=== PATIENT | male | born 1940 | race Caucasian/White ===

== ENCOUNTER → 2017-08-24 | Outpatient (CLI) | payer MEDICARE ==
[~2017-08-24] MED LIST: ACTOS 30 MG TAB30 M1 PO; ADULT LOW DOSE81 MG PO; ALLOPURINOL 30300 M1 PO; ATENOLOL 50 MG50 M1 PO; AVANDARYL 4 MG PO; AVANDARYL 4 MG1 EACH PO; BENTYL 20 MG TA20 M1 PO; CARISOPRODOL 3350 MG PO; CELEBREX 200 M200 M1 PO; CLONIDINE PO; CLONIDINE0.1 PO; COREG6.25 MG PO; GLYBURIDE 2.52.5 MG PO; HYDROCHLOROTHIA25 M1 PO; LEVEMIR SUBQ; LISINOPRIL5 MG PO; LORTAB 5 MG/5001 TA1 PO; NAPROXEN375 M1 PO; NEXIUM40 MG PO; NORCO 5-325 TA1 EACH PO; NORVASC5 MG PO; POTASSIUM CIT PO; SIMVASTATIN40 MG PO; TRAMADOL 50 MG50 MG PO; VOLTAREN GEL 1100 GM TOP
--- NOTE | 2017-08-29 06:53 | PAINCON ---
[address] [address] PAIN MANAGEMENT CONSULTATION Name: GINNAADELSO Room: [facility]#: [id number] Admission: 08/24/17 Attend Phys: Blair Silveira Discharge: Date of : 39 Report #: [id number] THIS REPORT FOR: //name// CC: FAM unknown Sriram Mast DATE OF SERVICE: 08/24/2017 PAIN CLINIC NOTE HISTORY OF PRESENT ILLNESS: The patient is a very pleasant 77-year-old gentleman, long known to the pain clinic, being treated for cervical radiculopathy and actually component of lumbar radiculopathy over time. Last seen in the pain clinic back in February of last year, had a cervical epidural injection with incremental improvement of baseline pain. In fact notes pain was actually nearly gone for a period of time, but it has gradually begun to recur. In 2017 he had a total of 3 cervical epidural injections and 2 lumbar epidural injections. Prior injection had been 01/2017 (cervical epidural injection), before that he had 3 injections April through July. He returns to the pain clinic today noting symptoms have begun to recur with pain in the right neck, shoulder and arm with paresthesia in the lateral 3 fingers (long, ring and fifth finger). He has decreased subjective grasp in this hand. PHYSICAL EXAMINATION: Otherwise shows a pleasant 77-year-old gentleman. BMI is 36.3 kilograms per meter squared, blood pressure 125/79, pulse 66, respirations 16. Cervical range of motion is limited. Positive Lhermitte's, rating the right hand. Objective decreased right triceps strength and right grasp strength. Deep tendon reflexes are diminished on the right compared to the left, primarily for the triceps and brachioradialis. ASSESSMENT: Symptomatic cervical radiculopathy by clinical exam and history. RECOMMENDATION: 1. I will renew hydrocodone 7.5/325 one tablet up to 3 times a day, dispensed 90 tablets with no refill. The patient has typically uses analgesic on a nondaily basis. Last prescription was about 6 months ago. 2. Cervical epidural injection under fluoroscopy today. 3. Follow up simply as needed. PROCEDURE: Cervical epidural injection under fluoroscopy. PROCEDURE NOTE: After written and informed consent was obtained including risk of dural puncture, spinal cord trauma, paralysis and increased pain, the patient was taken to the fluoroscopy suite and placed in the prone [place], [place] [address] PAIN MANAGEMENT CONSULTATION Name: ADELSO CHACKO Room: [facility]#: [id number] Admission: 08/24/17 Attend Phys: Blair Silveira Discharge: Date of : 39 Report #: [id number] appropriate abdominal bolstering, neck was flexed, palms under the thighs. Skin was prepped with ChloraPrep. Sterile draping was applied. Skin wheal with 1% Xylocaine was raised. A 22-gauge 3-1/2 inch epidural Tuohy needle was placed via a midline approach at the C7-T1 interspace, advanced under biplanar fluoroscopy using continuous loss of resistance. With appropriate loss of resistance at the expected depth on lateral view, the glass loss of resistance syringe was disconnected. A low volume extension tubing was connected to the needle and a 5 mL syringe. Negative aspiration for cerebrospinal fluid or blood was noted. A 1 mL of Omnipaque was injected which showed spread within the epidural space on biplanar fluoroscopy. This was followed with 80 mg of triamcinolone plus 1 mL of 1.5% preservative Xylocaine. Needle was withdrawn to the interspinous ligament, 0.5 mL of Xylocaine was used to flush the needle. The needle was then completely withdrawn. The area was cleansed. Band-Aid was applied. The patient was allowed to move off the procedure table and ambulated to the recovery room, monitored for an appropriate period of time, discharged in good and stable condition. <ELECTRONICALLY SIGNED> By: Sriram Mast DO 08/29/17 0653 [id number] Mast DO /carley
== END | disposition home or self-care (01) ==
LOC: M.PC 01:41
DX: M54.12 Radiculopathy, cervical region (principal); G89.29 Other chronic pain; I10 Essential (primary) hypertension; E11.9 Type 2 diabetes mellitus without complications; E78.5 Hyperlipidemia, unspecified; Z98.890 Other specified postprocedural states; Z88.8 Allergy status to other drugs, medicaments and biological substances; Z79.899 Other long term (current) drug therapy; Z79.891 Long term (current) use of opiate analgesic; Z79.4 Long term (current) use of insulin; Z98.0 Intestinal bypass and anastomosis status; Z90.5 Acquired absence of kidney

== ENCOUNTER → 2017-09-07 | Outpatient (CLI) | payer MEDICARE ==
--- NOTE | 2017-09-08 07:50 | PAINCON ---
[facility] [address] [place] [address] PAIN MANAGEMENT CONSULTATION Name: ADELSO CHACKO Room: [facility]#: [id number] Admission: 09/07/17 Attend Phys: Blair Silveira Discharge: Date of : 39 Report #: [id number] THIS REPORT FOR: //name// CC: Rob Mast DATE OF SERVICE: 09/07/2017 PROCEDURE: Cervical epidural injection under fluoroscopy. INDICATION: Symptomatic cervical radiculopathy by clinical exam and history. One cervical epidural injection on 08/24/2017 afforded good relief of right neck, shoulder and arm pain. Still has paresthesia going into the right fourth and fifth fingers. Objective loss of strength, right triceps compared to the left. He incidentally notes pain in the right ankle. He denies antecedent trauma, has pain in the lateral aspect of the right ankle from behind the malleolus anterior to the lateral aspect of the foot and somewhat up the distal aspect of the lower extremity on that right side. Lower extremity strength is otherwise preserved. Straight leg raise is negative. Patellar and Achilles reflexes are preserved, though he does have pain with movement and palpation of the right lower extremity. ASSESSMENT: Symptomatic right ankle pain. We will get x-rays of that ankle to look for any occult fracture. We will try a trial of Voltaren gel topically. Follow up next week to evaluate x-rays. PROCEDURE: Cervical epidural injection under fluoroscopy. PROCEDURE NOTE: After written and informed consent was obtained including risk of dural puncture, spinal cord trauma, paralysis and increased pain, the patient was taken to the fluoroscopy suite and placed in the prone position, with appropriate abdominal bolstering, neck was flexed, palms under the thighs. Skin was prepped with ChloraPrep. Sterile draping was applied. Skin wheal with 1% Xylocaine was raised. A 22-gauge 3-1/2 inch epidural Tuohy needle was placed via a midline approach at the C7-T1 interspace, advanced under biplanar fluoroscopy using continuous loss of resistance. With appropriate loss of resistance at the expected depth on lateral view, the glass loss of resistance syringe was disconnected. A low volume extension tubing was connected to the needle and a 5 mL syringe. Negative aspiration for cerebrospinal fluid or blood was noted. A 1 mL of Omnipaque was injected which showed spread within the epidural space on biplanar fluoroscopy. This was followed with 80 mg of triamcinolone plus 1 mL of 1.5% preservative Xylocaine. Needle was withdrawn to the interspinous ligament, 0.5 mL of Xylocaine was used to flush the needle. The needle was then completely withdrawn. The area was cleansed[place] [address] PAIN MANAGEMENT CONSULTATION Name: ADELSO CHACKO Room: [facility]#: [id number] Admission: 09/07/17 Attend Phys: Blair Silveira Discharge: Date of : 39 Report #: [id number] applied. The patient was allowed to move off the procedure table and ambulated to the recovery room, monitored for an appropriate period of time, discharged in good and stable condition. <ELECTRONICALLY SIGNED> By: Sriram Mast DO 09/08/17 0750 [id number] [id number] Camp[facility]a Mast DO /nt
== END ==
LOC: M.RAD 14:31
DX: M19.071 Primary osteoarthritis, right ankle and foot (principal); M25.474 Effusion, right foot; M25.471 Effusion, right ankle; M54.12 Radiculopathy, cervical region

== ENCOUNTER → 2017-09-07 | Outpatient (CLI) | payer MEDICARE | END | disposition home or self-care (01) | LOC: M.PC 04:00 | DX: M54.12 Radiculopathy, cervical region (principal); G89.29 Other chronic pain; S99.921A Unspecified injury of right foot, initial encounter; E11.9 Type 2 diabetes mellitus without complications; I10 Essential (primary) hypertension; E78.5 Hyperlipidemia, unspecified; Z98.890 Other specified postprocedural states; Z79.891 Long term (current) use of opiate analgesic; Z88.8 Allergy status to other drugs, medicaments and biological substances; Z79.899 Other long term (current) drug therapy; Z87.442 Personal history of urinary calculi; Z90.5 Acquired absence of kidney; X58.XXXA Exposure to other specified factors, initial encounter; Y93.89 Activity, other specified; Y92.89 Other specified places as the place of occurrence of the external cause; Y99.8 Other external cause status ==

== ENCOUNTER → 2017-09-14 | Outpatient (CLI) | payer MEDICARE ==
--- NOTE | 2017-09-15 07:13 | PAINCON ---
[address] [address] PAIN MANAGEMENT CONSULTATION Name: ADELSO CHACKO [id number] Admission: 09/14/17 Attend Phys: Blair Silveira Discharge: Date of : 39 Report #: [id number] THIS REPORT FOR: //name// CC: Shoaib Mast DATE OF SERVICE: 09/14/2017 HISTORY OF PRESENT ILLNESS: The patient is a pleasant 77-year-old gentleman, prior treated for symptomatic cervical radiculopathy, had a second cervical epidural injection on 09/07/2017. Fortunately, this did afford good relief. He was complaining of pain in the right ankle at that time. He had fallen several weeks prior. Had tripped, catching his right foot on a telephone cord and actually striking on the left side. He was more concerned about an abrasion of the left knee, but pain in the right ankle was quite problematic. I ordered x-rays of the right ankle and foot. The patient returns to pain clinic today. Again, noting that the prior epidural injection (actually was #2 in a series) had afforded excellent relief, the radicular symptoms are improving. He notes, however, that the right foot pain remains problematic. It is in the lateral inferior aspect of the foot from about the lateral malleolus down to the ball of the foot. It somewhat spares the arch of the foot. X-rays of the right ankle showed mild lateral malleolar soft tissue swelling, no osseous abnormality was noted. The x-ray of the right foot did note that first MTP joint had degenerative changes and some valgus deformity. Again, this is contralateral to the more lateral pain. The patient rates the pain a "10" on a 0-10 VAS. He is taking hydrocodone 5/325 up to 2 or 3 times a day for pain. Using Voltaren gel topically to the right foot. He is using a cane. Unfortunately, he tends to use it in the right hand. We talked about using on the left side. He tried to use it on the left side, but he was using it against gait (he was using the left cane parallel to his good left leg. I suggested he use the cane in his left hand parallel to his right leg, hence allowing him to offload weight on that bad ankle. PHYSICAL EXAMINATION: VITAL SIGNS: Today shows a 5 feet 7 inches, 229 pounds gentleman, BMI is 36 kilograms per meter squared. Blood pressure 130/66, pulse 68, respirations of 16. GENERAL: Appears somewhat younger than his stated age of 77. MUSCULOSKELETAL: Cervical range of motion is actually improved. Upper extremity strength is generally preserved, through again with some change in his gait secondary to the foot pain and using a cane. He [place] [address] PAIN MANAGEMENT CONSULTATION Name: WILKAYLAADELSO Roxanna Room: [facility] [place]#: [id number] Admission: 09/14/17 Attend Phys: Blair Silveira Discharge: Date of : 39 Report #: [id number] tenderness in the back, but no discrete trigger points noted. Inspection of the right ankle does show still a little edema in the lateral malleolus on the right side. Does have tenderness over the lateral aspect of the foot and the distal aspect over the sole radiating up to the ball of the foot. Really, no tenderness in the arch proper. No tenderness with range of motion in the ankle mortise proper. ASSESSMENT: 1. Symptomatic cervical radiculopathy, symptoms generally improved overall. 2. Soft tissue injury, right ankle. RECOMMENDATIONS: 1. Continue Voltaren gel topically and hydrocodone along with acetaminophen for pain. He also uses an occasional Aleve [id number]. 2. I did refer the patient to Dante Marie DPM. The patient was given contact information. I suggest he follow up with Dr. Marie if pain continues to be problematic throughout the rest of the week. I suspect it was a soft tissue injury, will tend to resolve on its own; however, would like to have a podiatric appointment available. 3. We will have the patient follow up simply as needed with the pain clinic. I did inform the patient that I will be leaving the practice. If he has recurrence of radicular symptoms, he can follow up with Dr. Nikolai Avendaño. <ELECTRONICALLY SIGNED> By: Sriram Mast DO 09/15/17 0713 [id number] Mast DO /nt
== END ==
LOC: M.PC 04:08
DX: M54.12 Radiculopathy, cervical region (principal); M25.572 Pain in left ankle and joints of left foot; M79.9 Soft tissue disorder, unspecified

== ENCOUNTER → 2018-05-04 | Outpatient (CLI) | payer MEDICARE ==
--- NOTE | ~2018-05-04 | PAINCON ---
[address] [address] PAIN MANAGEMENT CONSULTATION Name: ADELSO CHACKO Room: [facility]#: [id number] Admission: 05/04/18 Attend Phys: Casi Avendaño MD Discharge: Date of : 39 Report #: [id number] THIS REPORT FOR: //name// CC: Shoaib Avendaño DATE OF SERVICE: 05/04/2018 FOLLOWUP COMPLAINT: Pain in the neck and down into the shoulders, hand and back. FOLLOWUP HISTORY: The patient is a 77-year-old gentleman who has been followed in the pain clinic by Dr. Sriram Mast. This is my first visit with the patient. He is a 77-year-old gentleman with a history of cervical radiculopathy. He has undergone epidural steroid injections and gleaned benefits from these. He has noted increased pain in the usual area. He has pain in his neck, pain radiating down into his shoulders involvement of his hands and in the upper back area. He has had problems with his back and neck for years. Notes that he has pain his hands and "hurts to bend them." There is numbness and tingling. He does use a cane for balance. He has been using hydrocodone to help decrease the pain. ALLERGIES: OXYCODONE FROM PERCODAN, ASPIRIN FROM PERCODAN. MEDICATIONS: Allopurinol 300 mg daily, amlodipine 5 mg, Soma 350 mg t.i.d., Coreg 6.25 mg, clonidine 0.1 mg, Bentyl 20 mg b.i.d. stomach spasms, Nexium 40 mg, hydrocodone 5/325 one p.o. t.i.d., insulin Levemir 11 units subcutaneous at bedtime, 38 units subcutaneous, lisinopril 5 mg a total of 10 mg daily, Zocor 40 mg at bedtime, potassium supplementation t.i.d. PAST MEDICAL HISTORY: Hypertension, noninsulin-dependent diabetes, gout, cervical spondylosis, lumbar radiculopathy, degenerative joint disease, coronary artery disease 3 vessels, cervical radiculopathy, kidney disease, and colon problems. PAST SURGICAL HISTORY: Coronary artery disease 3 vessels in 2007, right kidney removal cancer in 2003, right side colon resection, left percutaneous nephrolithotomy with basket removal of stone, cholecystectomy, and appendectomy. 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 REVIEW OF SYSTEMS: As per HPI. LABORATORY DATA: 1. MRI dated 07/28/2012 reveals L4-L5 and L5-S1 neural foraminal narrowing with mild degenerative changes and L4-L5 mild disk bulge. There [place] [address] PAIN MANAGEMENT CONSULTATION Name: ADELSO CHACKO Room: [facility]#: [id number] Admission: 05/04/18 Attend Phys: Casi Avendaño MD Discharge: Date of : 39 Report #: [id number] arthropathy. There is moderate bilateral neural foraminal narrowing. There is mild central canal stenosis. 2. L5-S1, there is mild facet arthropathy. There is mild bilateral neural foraminal narrowing. There is mild central canal stenosis. Right shoulder, three views, impression, mild degenerative changes without fracture. Possible narrowing of the space between the acromion and humeral head can be seen in rotator cuff tear would be better evaluated with MRI. 3. MRI of cervical spine dated 06/06/2009. Impression, spondylitic changes of the cervical spine. Uncovertebral spurring at C4/C5 appears to cause some right foraminal narrowing and at C6-C7 appears to cause some left foraminal narrowing. No focal disk herniation or high grade spinal stenosis identified. A 2.4 cm mass, left lobe of thyroid. PAIN CLINIC ASSESSMENT/PQRS: 1. History of osteoarthritis. The patient has some arthritic changes in his ankle on the right. Also, has some cervical changes as well. 2. Height 5 feet 7 inches, weight 232 pounds. 3. BMI is 37.6. 4. Vital signs: Blood pressure 154/72, heart rate 70, respiratory rate 16, room air saturation 92%. Temperature 98.7. 5. Pain intensity. The patient rates his pain as a 7-8/10. 6. Fall risk. The patient has not fallen in the last 3 months. Does use a cane for balance. 7. Blood thinner. The patient is not on a blood thinning medication. 8. Hypertension. The patient is being treated for hypertension. 9. Opioids greater than 6 weeks. The patient is receiving hydrocodone to help control his pain. 10. Risk assessment tool, low for opioid use. 11. Functional assessment tool. 12. Recreational drug use. He denies use of recreational drugs. 13. Tobacco: The patient denies use of tobacco. 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 Alcohol: The patient denies use of alcoholic beverages. PHYSICAL EXAMINATION: GENERAL: The patient is a well-developed white male, appears his stated age. He is alert and oriented x 3. His affect is appropriate. Speech is fluent. HEENT: Normocephalic, atraumatic. Extraocular eye muscles intact. Sclerae nonicteric. Mucous membranes are moist. The patient has some pain and discomfort in the upper neck area with pain that is radiating down into his shoulders, hands and in the back area. HEART: Regular rate. ABDOMEN: Nontender. EXTREMITIES: Upper extremity muscle strength is judged to be 4+ for the major muscle groups in the upper extremity. Lower extremity, the patient's muscle strength is judged to be 4+ for the major muscle groups of the lower extremity. The patient does walk with use of a cane [place] [address] PAIN MANAGEMENT CONSULTATION Name: ADELSO CHACKO Room: [facility]#: [id number] Admission: 05/04/18 Attend Phys: Casi Avendaño MD Discharge: Date of : 39 Report #: [id number] IMPRESSION: 1. Cervical radiculopathy. 2. Hypertension. 3. Diabetes, insulin-dependent. 4. Gout. 5. Cervical spondylosis. 6. Lumbar radiculopathy. 7. Degenerative joint disease. 8. History of renal cell carcinoma status post nephrectomy. 9. Coronary artery disease, status post 3-vessel in 2007. RECOMMENDATIONS: We discussed treatment options with the patient. Risks and benefits of a cervical epidural steroid injection were reviewed. They include but are not limited to infection, worsening pain, no improvement in pain, bleeding, nerve damage with paralysis. At this juncture, he is having pain in the neck, shoulders, hands, back. He would like to proceed with a cervical epidural steroid injection. He has undergone these in the past and found them beneficial. At this juncture, we will proceed with another injection. Risks and benefits were reviewed again. The patient elects to proceed. PROCEDURE NOTE: The patient was taken to the procedure area. He was assisted in getting on examination table. His neck was sterilely prepped with a Betadine solution. Fluoroscopy using anterior, posterior as well as lateral viewing were implemented. The patient's neck was sterilely prepped with Betadine solution, which was allowed to dry. A 25-gauge needle was then used to numb the area. A total of 4 mL of 0.25% bupivacaine was used. A 17-gauge Tuohy with loss of resistance technique was used to gain access to the epidural space. This was at the C7-T1 interspace. A total of 80 mg Depo-Medrol, 40 mg triamcinolone and 2 mL of 0.25% bupivacaine was injected. The patient tolerated the procedure well. He remained in the pain clinic for an appropriate amount of time. Total of 22 seconds fluoroscopy time was used. We would like to thank you for letting us participate in his care. We hope he continues to improve. A script for hydrocodone 5/325 one p.o. t.i.d. and Voltaren gel to be applied to the right ankle were renewed. By: [id number]. Nikolai Avendaño MD /carley
== END | disposition home or self-care (01) ==
LOC: M.PC 13:20
DX: M47.22 Other spondylosis with radiculopathy, cervical region (principal); G89.29 Other chronic pain; I10 Essential (primary) hypertension; E11.9 Type 2 diabetes mellitus without complications; M10.9 Gout, unspecified; M19.90 Unspecified osteoarthritis, unspecified site; I25.10 Atherosclerotic heart disease of native coronary artery without angina pectoris; Z90.5 Acquired absence of kidney; Z85.53 Personal history of malignant neoplasm of renal pelvis; Z79.4 Long term (current) use of insulin; Z79.899 Other long term (current) drug therapy; Z98.890 Other specified postprocedural states; Z87.19 Personal history of other diseases of the digestive system; Z98.0 Intestinal bypass and anastomosis status; Z90.49 Acquired absence of other specified parts of digestive tract; Z88.8 Allergy status to other drugs, medicaments and biological substances; Z79.891 Long term (current) use of opiate analgesic

== ENCOUNTER → 2018-09-05 | Outpatient (CLI) | payer MEDICARE ==
[~2018-09-05] MED LIST changes: +MEDROLDOSEPACK PO
--- NOTE | ~2018-09-05 | PAINCON ---
[address] [address] PAIN MANAGEMENT CONSULTATION Name: GINNAADELSO Mcknight Room: [facility]#: [id number] Admission: 09/05/18 Attend Phys: Casi Avendaño MD Discharge: Date of : 39 Report #: [id number] THIS REPORT FOR: //name// CC: Shoaib Avendaño DATE OF SERVICE: 09/05/2018 CHIEF COMPLAINT: Here for medication renewal. Have pain in my shoulders and back. HISTORY OF PRESENT ILLNESS: The patient is a 78-year-old gentleman who has been followed in the pain clinic for a number of years. He has a history of neck, shoulder, hand, and back pain. He notes that the pain today is kind of all over. Has some pain in his neck, shoulders, arms, knees, and right foot. He has noted worsening of pain. The weather pattern has changed. There is possibility of Tornadic activity over this week. The air stability is tumultuous. He feels that Voltaren gel is helpful. He notes that it has helped in the itching. Notes that walking, sitting, standing, climbing stairs, lifting, and bending are problematic. He has undergone epidural steroid injections in the past. He has had injections in the arm areas. At this juncture, he feels that he hurts in so many places, he is not sure where he would like to have an injection. ALLERGIES: OXYCODONE FROM PERCODAN, ASPIRIN FROM PERCODAN. MEDICATIONS: Allopurinol 300 mg daily, amlodipine 5 mg, Soma 350 mg t.i.d., Coreg ____, clonidine 0.1 mg, Bentyl 20 mg b.i.d., stomach spasms, Nexium 40 mg, hydrocodone is 5/325 one p.o. t.i.d., insulin Levemir 11 units subcutaneously at bedtime, 38 units subq, lisinopril 5 mg, a total of 10 mg daily, Zocor 40 mg at bedtime, and potassium supplementation t.i.d. PAIN CLINIC ASSESSMENT AND PQRS: 1. History of osteoarthritis. The patient has arthritic changes in his ankle on the right. Has some cervical changes as well. He has not been treated for rheumatoid arthritis. 2. Height 5 feet 7 inches, weight 233 pounds, BMI is 37.1. 3. VITAL SIGNS: Blood pressure 150/77, heart rate 65, respiratory rate 16, room air saturation 95%, temperature 98.5. 4. Pain intensity 8/10. 5. Fall history: The patient has not fallen in the last 3 months. 6. Blood thinner. The patient is not on a blood thinning medication. 7. Hypertension. The patient is being treated for hypertension. 8. Opioids, greater than 6 weeks. The patient receives this medication from [facility] [address] PAIN MANAGEMENT CONSULTATION Name: ADELSO CHACKO Room: [facility]#: [id number] Admission: 09/05/18 Attend Phys: Casi Avendaño MD Discharge: Date of : 39 Report #: [id number] 9. Risk assessment tool, low for opioid use. 10. Functional assessment tool. 11. Recreational drug use. The patient denies use of recreational drugs. 12. Tobacco: The patient denies use of tobacco. 13. The patient rarely drinks alcoholic beverages. 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 PHYSICAL EXAMINATION: GENERAL: The patient is a well-developed, well-nourished white male, slightly obese. His affect is appropriate. Speech is fluent. HEENT: Normocephalic, atraumatic. Extraocular eye muscles intact. Sclerae nonicteric. Mucous membranes are moist. The patient wears glasses. HEART: Rate regular. ABDOMEN: Protuberant, nontender. EXTREMITIES: The patient complains of pain in the upper shoulder area. Also, has pain in his neck, hands, and down in the back area. Upper extremity muscle strength is judged to be 4+ for the major muscle groups in the upper extremity and for the lower extremity is 4+. The patient has used a cane to help with his balance. IMPRESSION: 1. Cervical radiculopathy. 2. Hypertension. 3. Diabetes, insulin-dependent. 4. Gout. 5. Cervical spondylosis. 6. Lumbar radiculopathy. 7. Degenerative joint disease. 8. History of renal cell carcinoma, status post nephrectomy. 9. Coronary artery disease, status post 3-vessel CABG in 2007. RECOMMENDATIONS: We discussed treatment options with the patient. At this juncture, he feels medications are working reasonably well. We will continue his medications. A script for his medications of Voltaren gel to his right ankle t.i.d., which is quite helpful, has been issued. The patient will also evaluate whether or not to continue with the muscle relaxant, Soma, the patient has been given a Medrol Dosepak. He will take this with the hope that this will be helpful for helping the numerous areas of pain, which he is experiencing. There is no discrete trigger point today. A script for hydrocodone will be continued as well. The patient will call us if he has any concerns. [address] [address] PAIN MANAGEMENT CONSULTATION Name: ADELSO CHACKO Room: [facility] [place]#: [id number] Admission: 09/05/18 Attend Phys: Casi Avendaño MD Discharge: Date of : 39 Report #: [id number] We would like to thank you for letting us participate in his care. We hope he continues to improve. By: [id number]. Nikolai Avendaño MD /nt
== END ==
LOC: M.PC 01:51
DX: M47.22 Other spondylosis with radiculopathy, cervical region (principal); I10 Essential (primary) hypertension; E11.9 Type 2 diabetes mellitus without complications; M10.9 Gout, unspecified; I25.10 Atherosclerotic heart disease of native coronary artery without angina pectoris; Z85.528 Personal history of other malignant neoplasm of kidney; Z79.4 Long term (current) use of insulin; Z95.1 Presence of aortocoronary bypass graft; Z88.8 Allergy status to other drugs, medicaments and biological substances; Z79.899 Other long term (current) drug therapy; Z79.891 Long term (current) use of opiate analgesic

== ENCOUNTER → 2018-12-26 | Outpatient (CLI) | payer MEDICARE ==
[~2018-12-26] MED LIST changes: +HYDROCODON-ACE1 EAC7 PO
--- NOTE | ~2018-12-26 | PAINCON ---
[address] [address] PAIN MANAGEMENT CONSULTATION Name: ADELSO CHACKO Room: [facility].#: [id number] Admission: 12/26/18 Attend Phys: Casi Avendaño MD Discharge: Date of : 39 Report #: [id number] THIS REPORT FOR: //name// CC: Shoaib Amato DATE OF SERVICE: 12/26/2018 CHIEF COMPLAINT: Here for renewal of the medications. HISTORY: The patient is a 78-year-old gentleman who has been seen in the pain clinic. As you may recall, he has a constellation of pain and discomfort areas. Has pain in her neck, shoulders, hands, and back, which has been problematic for years. Notes that over the last few weeks, he has been having more pain and discomfort. Last couple of days ago, his pain was quite intense. It is improved somewhat. He associates it with some changes in the weather. He underwent steroid treatment course. Oral steroids were helpful. He has returned today and would like to repeat the Medrol Dosepak. Rates his pain as a 7/10. Feels that the hydrocodone tablets have been helpful as well. Notes his pain increases with walking, sitting, standing, climbing stairs, going from a sitting to a standing, lifting, and bending position. ALLERGIES: OXYCODONE FROM PERCODAN AND ASPIRIN FROM PERCODAN. CURRENT MEDICATIONS: Allopurinol 300 mg daily, amlodipine 5 mg, Soma 350 mg t.i.d., Coreg 6.25 mg, clonidine 0.1 mg, Bentyl 20 mg b.i.d., stomach spasms; Nexium 40 mg; hydrocodone 5/325 one p.o. t.i.d. p.r.n.; insulin Levemir 11 units subcutaneous at bedtime and 38 units subcutaneous; lisinopril 5 mg, a total of 10 mg daily; Zocor 40 mg at bedtime; and potassium supplementation t.i.d. PAIN CLINIC ASSESSMENT/PQRS: 1. History of osteoarthritis. The patient has some arthritic changes in his ankle on the right. He has cervical changes as well. He is not being treated for rheumatoid arthritis. 2. Height 5 feet 7 inches, weight 230 pounds, BMI is 36.1. 3. Vital signs: Blood pressure 131/86, heart rate 64, respiratory rate 16, room air saturation is 94%, temperature 98.3. 4. Pain intensity 7/10. 5. Fall history: The patient has not fallen in the last 3 months. 6. Blood thinner. The patient is not on a blood thinning medication. 7. Hypertension. The patient is being treated for hypertension. 8. Opioids greater than 6 weeks. The patient receives medication from one source the pain clinic. 9. Risk assessment tool is [place] [address] PAIN MANAGEMENT CONSULTATION Name: ADELSO CHACKO Room: [facility]#: [id number] Admission: 12/26/18 Attend Phys: Casi Avendaño MD Discharge: Date of : 39 Report #: [id number] 10. Functional assessment tool. 11. Recreational drugs. The patient denies use of recreational drugs. 12. Tobacco: The patient denies use of tobacco. 13. Alcohol: The patient rarely drinks alcoholic beverage. PHYSICAL EXAMINATION: GENERAL: The patient is a well-developed, well-nourished white male. Appears his stated age. He is slightly obese. His affect is appropriate. Speech is fluent. HEENT: Normocephalic, atraumatic. Extraocular eye muscles intact. Sclerae nonicteric. Mucous membranes are moist. The patient is wearing glasses. HEART: Regular rate. ABDOMEN: Nontender. Bowel sounds present. MUSCULOSKELETAL: Upper extremity, the patient has some pain and discomfort in his upper shoulders. Has pain in his neck. Has had some pain in his right hand, which was "quite problematic a day or so ago,' but is improving. Muscle strength is judged to be 4+/5 for the major muscle groups in the upper extremity. Lower extremity 4+/5 for the lower extremity. The patient has used a cane in the past to help maintain balance. IMPRESSION: 1. Cervical radiculopathy. 2. Hypertension. 3. Diabetes, insulin-dependent. 4. Gout. 5. Cervical spondylosis. 6. Lumbar radiculopathy. 7. Degenerative joint disease. 8. History of renal cell carcinoma, status post nephrectomy. 9. Coronary artery disease, status post 3-vessel coronary artery bypass graft in 2007. RECOMMENDATIONS: We discussed treatment options with the patient. At this juncture, we will try a conservative approach. He felt that the Medrol Dosepak was efficacious in the past. We will provide the patient with some hydrocodone. He will call us if he has any concerns. He felt that this was quite a good way to control it and he did get good benefits at the last visit. He will take the medications as prescribed. He will monitor his blood glucose levels. A script for hydrocodone 5/325 one p.o. t.i.d., 90 tablets have been prescribed. We would like to thank you for letting us participate in his care. We hope he continues to improve. By: [id number] [id number]. Nikolai Avendaño MD /HARSHA
== END ==
LOC: M.PC 04:52
DX: M47.22 Other spondylosis with radiculopathy, cervical region (principal); M54.16 Radiculopathy, lumbar region; M19.90 Unspecified osteoarthritis, unspecified site; I10 Essential (primary) hypertension; E11.9 Type 2 diabetes mellitus without complications; I25.10 Atherosclerotic heart disease of native coronary artery without angina pectoris; Z95.1 Presence of aortocoronary bypass graft; Z88.8 Allergy status to other drugs, medicaments and biological substances; Z79.4 Long term (current) use of insulin; Z79.899 Other long term (current) drug therapy

== ENCOUNTER → 2019-04-03 | Outpatient (CLI) | payer MEDICARE ==
[~2019-04-03] MED LIST changes: +Soma 350MG PO
--- NOTE | 2019-04-17 14:48 | PAINCON ---
[address] [address] PAIN MANAGEMENT CONSULTATION Name: ADELSO CHACKO Room: [facility]#: [id number] Admission: 04/03/19 Attend Phys: Casi Avendaño MD Discharge: Date of : 39 Report #: [id number] THIS REPORT FOR: //name// CC: Shoaib Amato DATE OF SERVICE: 04/03/2019 CHIEF COMPLAINT: Neck pain. HISTORY: The patient is a 78-year-old gentleman who has been followed in the pain clinic. He has pain in his neck, shoulders, and hands as well as in his back. He has had problems for a number of years. He has undergone epidural steroid injections in the cervical area in the past and would like to proceed with another injection today. These have been efficacious. He has had no complication from their use. His right hand is involved with numbness involving 3 of his fingers. He has spoken with physicians in regards to his neck situation. He is not interested in surgery. ALLERGIES: OXYCODONE FROM PERCODAN AND ASPIRIN. CURRENT MEDICATIONS: Allopurinol 300 mg, amlodipine 5 mg, Soma 350 mg t.i.d., Coreg 6.25 mg, clonidine 0.1 mg, Bentyl 20 mg b.i.d., Nexium 40 mg, hydrocodone 5/325 one p.o. t.i.d., insulin Levemir 11 units subcutaneous at bedtime and 30 units, lisinopril 5 mg total of 10 mg daily, Zocor 40 mg at bedtime, and potassium supplement t.i.d. PAIN CLINIC ASSESSMENT AND PQRS: 1. History of osteoarthritis. The patient has some arthritic changes in his right ankle. He has some cervical changes as well. He is not being treated for rheumatoid arthritis. 2. Height 5 feet 7 inches, weight 230 pounds, and BMI is 35.9. 3. Vital Signs: Blood pressure 153/66, heart rate 69, respiratory rate 16, room air saturation 98%, and temperature 97.5. 4. Pain intensity 7-8/10. 5. Fall history: The patient has not fallen in the last 3 months. 6. Blood thinner. The patient is not on a blood thinning medication. 7. Hypertension. The patient is being treated for hypertension. 8. Opioids greater than 6 weeks. The patient is receiving medications from one source, pain physician. 9. Recreational drug use: The patient denies. 10. Tobacco: The patient denies. 11. Alcohol: The patient [place] [address] PAIN MANAGEMENT CONSULTATION Name: WILKAYLAADELSO Room: [facility]#: [id number] Admission: 04/03/19 Attend Phys: Casi Avendaño MD Discharge: Date of : 39 Report #: [id number] PHYSICAL EXAMINATION: GENERAL: The patient is a well-developed, well-nourished white male, somewhat obese. He is alert and oriented. He is very loquacious. HEENT: Normocephalic, atraumatic. Extraocular eye muscles intact. Sclerae nonicteric. Mucous membranes are moist. The patient is wearing glasses. HEART: Regular rate, distant tones. ABDOMEN: Protuberant. Bowel sounds present. MUSCULOSKELETAL: Upper extremity muscle strength judged to be 5-/5 for the major muscle groups in the upper extremity. The patient has some pain and discomfort in the right arm and right neck with radiation down into his right hand with numbness in 3 fingers. Lower extremity muscle strength judged to be 5-/5 for the major muscle groups in the lower extremity. IMPRESSION: 1. History of cervical radiculopathy. 2. Hypertension. 3. Diabetes, insulin-dependent. 4. Gout. 5. Cervical spondylosis. 6. Lumbar radiculopathy. 7. Degenerative joint disease. 8. History of renal cell carcinoma, status post nephrectomy. 9. Coronary artery disease, status post 3-vessel coronary artery bypass grafting in 2007. RECOMMENDATIONS: We discussed treatment options with the patient. Risks and benefits of an epidural steroid injections in the cervical area were discussed. Possible complications of the procedure, which could include but are not limited to infection, worsening pain, no improvement in pain, nerve damage, bruising, muscle soreness, and infection were discussed. The patient elects to proceed. PROCEDURE NOTE: The patient was taken to the procedure area. He was then assisted in getting on examination table. His back was sterilely prepped with a Betadine solution. A pillow was placed under the chest area to bolster and improve positioning. The area was identified using fluoroscopy using anterior posterior viewing plate. A 0.25% bupivacaine was infiltrated at the C7-T1, were identified. After this area had been anesthetized, a 17-gauge Tuohy with loss of resistance technique was used to gain access for the epidural space. There was no CSF, heme or paresthesia. Total of 120 mg triamcinolone was injected. The patient tolerated the procedure well. He remained in the Pain Clinic for an appropriate amount of time. He will follow up in the future as needed. A script for medications, which include Soma 350 mg 1 p.o. t.i.d. 45 tablets, Voltaren gel 1% to the affected area and hydrocodone 5/325 one p.o. t.i.d., total of 90 tablets have been dispended. The patient will call us if [place] [address] PAIN MANAGEMENT CONSULTATION Name: ADELSO CHACKO Room: [facility]#: [id number] Admission: 04/03/19 Attend Phys: Casi Avendaño MD Discharge: Date of : 39 Report #: [id number] We would like to thank you for letting us participate in his care. We hope he continues to improve. Thank you very much for proofreading the dictation. <ELECTRONICALLY SIGNED> By: Casi Avendaño MD 04/17/19 1448 1238 2149N. Nikolai Avendaño MD /nt
== END | disposition home or self-care (01) ==
LOC: M.PC 04:57
DX: M54.12 Radiculopathy, cervical region (principal); M54.2 Cervicalgia; G89.29 Other chronic pain; I10 Essential (primary) hypertension; E11.9 Type 2 diabetes mellitus without complications; I25.10 Atherosclerotic heart disease of native coronary artery without angina pectoris; M10.9 Gout, unspecified; M54.16 Radiculopathy, lumbar region; M19.90 Unspecified osteoarthritis, unspecified site; Z98.890 Other specified postprocedural states; Z85.528 Personal history of other malignant neoplasm of kidney; Z88.8 Allergy status to other drugs, medicaments and biological substances; Z79.4 Long term (current) use of insulin; Z90.5 Acquired absence of kidney; Z95.1 Presence of aortocoronary bypass graft; Z79.899 Other long term (current) drug therapy

== ENCOUNTER → 2019-11-29 | Outpatient (CLI) | payer MEDICARE ==
--- NOTE | 2019-12-18 15:37 | PAINCON ---
[address] [address] PAIN MANAGEMENT CONSULTATION Name: ADELSO CHACKO Room: [facility]#: [id number] Admission: 11/29/19 Attend Phys: Casi Avendaño MD Discharge: Date of : 39 Report #: [id number] THIS REPORT FOR: //name// cc: Rob Daily John E. DO ~ THIS REPORT FOR: //name// CC: Rob Avendaño DATE OF SERVICE: 11/29/2019 CHIEF COMPLAINT: Neck pain. HISTORY: The patient is an 79-year-old gentleman, who has been followed in the Pain Clinic because of chronic pain. He is experiencing pain, which is radiating down his neck, shoulder, and involving his hands. He rates his pain today as 7/10. He notes weakness in his hands, it involves both sides. He has undergone epidural steroid injections in the past and found those quite beneficial. He has returned today with the desire to undergo another injection series. He is not interested in surgery. He still has some numbness in 3 fingers on his right hand. ALLERGIES: OXYCODONE FROM PERCODAN AND ASPIRIN. CURRENT MEDICATIONS: Allopurinol 300 mg, amlodipine 5 mg, Soma 350 mg t.i.d., Coreg 6.25 mg, clonidine 0.1 mg, Bentyl 20 mg b.i.d., Nexium 40 mg, hydrocodone 5/325 one p.o. t.i.d., insulin Levemir 11 units subcutaneous at bedtime and 30 units, lisinopril 5 mg at a total of 10 mg daily, Zocor 40 mg at bedtime, potassium 20 mEq t.i.d. PAIN CLINIC ASSESSMENT AND PQRS: 1. The patient has a history of osteoarthritis. He has some arthritic changes in his right ankle. He has some cervical changes as well. He is not being treated for rheumatoid arthritis. 2. Height 5 feet 7 inches, weight 232 pounds, BMI is 36.3. 3. Vital signs: Blood pressure 159/65, heart rate 62, respiratory rate is 16, room air saturation 95%, temperature 98.8. 4. Pain intensity: 7/10. 5. Fall history: The patient has not fallen in the last 3 months. 6. Blood thinner: The patient is not on a blood thinning medication. 7. Hypertension: The patient is being treated for hypertension. 8. Opioids greater than 6 weeks: The patient receives medications from one source from Pain Clinic. 9. Recreational drug use: The patient denies use of recreational drugs. 10. Tobacco: The [place] [address] PAIN MANAGEMENT CONSULTATION Name: ADELSO CHACKO Room: [facility]#: [id number] Admission: 11/29/19 Attend Phys: Casi Avendaño MD Discharge: Date of : 39 Report #: [id number] 11. Alcohol: The patient rarely drinks alcoholic beverages. PHYSICAL EXAMINATION: GENERAL: The patient is a well-developed, well-nourished, white male. Appears his stated age. He is somewhat obese. He is alert and oriented x 3. His affect is appropriate. Speech is fluent. The patient is very loquacious. HEENT: Normocephalic, atraumatic. Extraocular eye muscles intact. Sclerae nonicteric. Mucous membranes are moist. The patient is wearing glasses. He is on facial covering. HEART: Regular rate, distant tones. ABDOMEN: Protuberant. Bowel sounds present. MUSCULOSKELETAL: Upper extremity muscle strength is judged to be 5/5 for the major muscle groups in the upper extremity. The patient has some pain and discomfort in the right arm and right neck with radiation down into his right hand with some numbness in his 3 fingers. Lower extremity muscle strength is judged to be 5-/5 for the major muscle groups in the lower extremity. IMPRESSION: 1. History of cervical radiculopathy. 2. Hypertension. 3. Diabetes. 4. Insulin-dependent diabetes. 5. Gout. 6. Cervical spondylosis. 7. Lumbar radiculopathy. 8. Degenerative joint disease. 9. History of renal cell carcinoma, status post nephrectomy. 10. Coronary artery disease, status post 3-vessel coronary artery disease grafting in 2007. RECOMMENDATIONS: We discussed treatment options with the patient. Risks and benefits of a cervical epidural steroid injection were discussed. Possible complications of the procedure were reviewed. The patient is aware that a pandemic is ongoing with COVID-19. We explained that infection after the injection could be problematic given that steroids can decrease one's immunity. The patient is aware and elects to proceed. PROCEDURE NOTE: The patient was taken to the procedure area. He was then assisted in getting on the examination table. His back was sterilely prepped with betadine solution in the cervical area. Fluoroscopy using anterior, posterior as well as lateral viewing were implemented. The patient's neck was infiltrated at C7-T1 with 0.25% bupivacaine using a 25-gauge needle to anesthetize the area. A 17-gauge Tuohy with loss of resistance technique was then used to gain access to the epidural space. There was no CSF, heme or paresthesia. Total of 120 mg of triamcinolone was injected. The patient tolerated the procedure well. He will monitor his blood sugar level. [facility] [address] [place] [address] PAIN MANAGEMENT CONSULTATION Name: GINNAADELSO Roxanna Room: [facility]#: [id number] Admission: 11/29/19 Attend Phys: Casi Avendaño MD Discharge: Date of : 39 Report #: [id number] We would like to thank you for letting us participate in his care. We hope he continues to improve. <ELECTRONICALLY SIGNED> By: Casi Avendaño MD 12/18/19 1537 2232 0421N. Nikolai Avendaño MD /nt
== END | disposition home or self-care (01) ==
LOC: M.PC 12:50
PROVIDERS: ATTEND Anesthesiology Pain Medicine
DX: M54.12 Radiculopathy, cervical region (principal); G89.29 Other chronic pain; I10 Essential (primary) hypertension; I25.10 Atherosclerotic heart disease of native coronary artery without angina pectoris; E11.9 Type 2 diabetes mellitus without complications; M10.9 Gout, unspecified; M19.90 Unspecified osteoarthritis, unspecified site; Z98.890 Other specified postprocedural states; Z79.899 Other long term (current) drug therapy; Z85.528 Personal history of other malignant neoplasm of kidney; Z79.4 Long term (current) use of insulin; Z90.5 Acquired absence of kidney

== ENCOUNTER 2020-01-28 14:05 | Emergency (ER) | payer MEDICARE ==
[~2020-01-28] VITALS: Ht 170.2 cm; Wt 99.8 kg
[2020-01-28] MEDS ORDERED: NOVOLIN R100 UNIT/1 SUBQ (14:13)
[2020-01-28] MEDS ORDERED: NOVOLIN N100 UNIT/1 SUBQ (14:13)
[2020-01-28] MEDS ORDERED: FLOMAX0.4 MG PO (14:15)
[2020-01-28 16:15] LABS: ABSOLUTE BASOPHILS 0.1 thou/uL (0.0-0.2); ABSOLUTE EOSINOPHILS 0.1 thou/uL (0.0-0.7); ABSOLUTE LYMPHOCYTES 1.5 thou/uL (0.8-5.3); ABSOLUTE MONOCYTES 1.2 thou/uL (0.0-1.2); ABSOLUTE NEUTROPHILS 10.1 thou/uL (1.6-8.1); BASOPHILS 0.9 %; EOSINOPHILS 0.7 %; HEMATOCRIT 41.6 % (42.0-52.0); HEMOGLOBIN 14.1 gm/dL (14.0-18.0); LYMPHOCYTES 11.7 %; MCH 31.8 pg (26.0-34.0); MCHC 33.9 g/dL (28.0-37.0); MONOCYTES 9.5 %; MPV 8.2 fl. (7.2-11.1); NUCLEATED RBCS 0 /100WBC; PLATELET COUNT* 142 thou/uL (150-400); POLYS 77.2 %; RBC 4.42 mil/uL (4.50-6.00); RDW-CV 14.9 % (10.5-14.5); WBC 13.1 thou/uL (4.0-11.0)
[2020-01-28 16:19] LABS: URINE BILIRUBIN NEGATIVE (Negative); URINE BLOOD NEGATIVE (Negative); URINE CLARITY CLEAR; URINE COLOR YELLOW; URINE GLUCOSE-RANDOM NEGATIVE (Negative); URINE KETONES NEGATIVE (Negative); URINE LEUKOCYTES NEGATIVE (Negative); URINE NITRITE NEGATIVE (Negative); URINE PROTEIN 1+ (Negative); URINE SPECIFIC GRAVITY >= 1.030 (1.005-1.030); URINE UROBILINOGEN 0.2 E.U./dl (0.2-1.0)
[2020-01-28 16:25] LABS: CALCIUM 9.3 mg/dL (8.5-10.1); CREATININE 1.6 mg/dL (0.6-1.3)
[2020-01-28 16:29] LABS: ALBUMIN 3.9 g/dL (3.4-5.0); MAGNESIUM 2.2 mg/dL (1.8-2.4); TOTAL BILIRUBIN 1.2 mg/dL (<0.1-1.0); TOTAL PROTEIN 7.4 g/dL (6.4-8.2)
[2020-01-28] MEDS ORDERED: NORCO 5-325 TA1 EAC2 PO (17:58)
[2020-01-28] MEDS ORDERED: AUGMENTIN 875-1 EACH PO (17:58)
[2020-01-28 18:15] VITALS: BP 149/74
--- NOTE | 2020-01-29 15:49 | EKG ---
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 : 1940 Requested By: Felicity Rivera Order Number: [id number] MD: Rob Mar Measurements Intervals [place] Rate: 86 P: -6 MN: 165 QRS: -2 QRSD: 91 T: 132 QT: 507 QTc: 607 Interpretive Statements Sinus rhythm R wave regression V2 to V3; question lead misplacement Possible inferior scar Nonspecific T abnormalities, lateral leads Prolonged QT interval Compared to ECG 03/27/2006 16:26:50 T-wave abnormality now present Prolonged QT interval now present R wave regression V2 to V3 is noted and inferior scar is possible Electronically Signed On 01-29-2020 15:49:15 CDT by Rob Mar [email or web address] <ELECTRONICALLY SIGNED> By: Rob Mar MD, [facility] 01/29/20 1549 1634 1634 Rob Mar MD, [facility] /EPI
== END 2020-01-28 18:16 | disposition home or self-care (01) ==
LOC: M.ERS 14:05
PROVIDERS: Physician Assistant
DX: K57.32 Diverticulitis of large intestine without perforation or abscess without bleeding (principal); I10 Essential (primary) hypertension; M10.9 Gout, unspecified; E11.9 Type 2 diabetes mellitus without complications; Z79.899 Other long term (current) drug therapy; Z79.4 Long term (current) use of insulin; Z88.6 Allergy status to analgesic agent; Z90.49 Acquired absence of other specified parts of digestive tract

== ENCOUNTER → 2020-02-15 | Outpatient (CLI) | payer MEDICARE ==
[~2020-02-15] MED LIST changes: +AUGMENTIN 875-1 EACH PO; +FLOMAX0.4 MG PO; +NORCO 5-325 TA1 EAC2 PO; +NOVOLIN N100 UNIT/1 SUBQ; +NOVOLIN R100 UNIT/1 SUBQ
== END ==
LOC: M.CT 09:50
PROVIDERS: ATTEND Nurse Practitioner Family
DX: K57.33 Diverticulitis of large intestine without perforation or abscess with bleeding (principal); N20.0 Calculus of kidney; K40.90 Unilateral inguinal hernia, without obstruction or gangrene, not specified as recurrent; R91.1 Solitary pulmonary nodule

== ENCOUNTER 2020-02-29 07:27 | Emergency (ER) | payer MEDICARE ==
[~2020-02-29] VITALS: Ht 167.6 cm; Wt 104.3 kg
[2020-02-29 08:10] LABS: ABSOLUTE BASOPHILS 0.1 thou/uL (0.0-0.2); ABSOLUTE EOSINOPHILS 0.3 thou/uL (0.0-0.7); ABSOLUTE MONOCYTES 0.7 thou/uL (0.0-1.2); ABSOLUTE NEUTROPHILS 4.9 thou/uL (1.6-8.1); EOSINOPHILS 3.5 %; HEMATOCRIT 41.1 % (42.0-52.0); HEMOGLOBIN 13.8 gm/dL (14.0-18.0); LYMPHOCYTES 24.8 %; MCH 31.6 pg (26.0-34.0); MCHC 33.6 g/dL (28.0-37.0); MONOCYTES 9.2 %; MPV 8.7 fl. (7.2-11.1); NUCLEATED RBCS 0 /100WBC; PLATELET COUNT* 148 thou/uL (150-400); POLYS 61.5 %; RBC 4.37 mil/uL (4.50-6.00); RDW-CV 14.3 % (10.5-14.5); WBC 7.9 thou/uL (4.0-11.0)
[2020-02-29 08:15] LABS: CALCIUM 8.4 mg/dL (8.5-10.1); CREATININE 1.7 mg/dL (0.6-1.3); POTASSIUM 4.2 mmol/L (3.5-5.1)
[2020-02-29 08:19] LABS: ALBUMIN 3.4 g/dL (3.4-5.0); TOTAL BILIRUBIN 0.8 mg/dL (<0.1-1.0); TOTAL PROTEIN 6.5 g/dL (6.4-8.2)
--- NOTE | 2020-02-29 09:20 | EKG ---
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: : 1940 Requested By: Bob Stovall Order Number: [id number] MD: Rob Mar Measurements Intervals [place] Rate: 56 P: -1 ME: 135 QRS: 11 QRSD: 136 T: 95 QT: 416 QTc: 402 Interpretive Statements Sinus rhythm Nonspecific intraventricular conduction delay Nonspecific T abnormalities, lateral leads Baseline wander in lead(s) V2 Compared to ECG 01/28/2020 16:34:42 Intraventricular conduction delay now present Prolonged QT interval no longer present T-wave abnormality still present Electronically Signed On 02-29-2020 9:20:40 DIESEL TECHNICIAN by Rob Mar [email or web address] <ELECTRONICALLY SIGNED> By: Rob Mar MD, [facility] 02/29/20919 5 5 Rob Mar MD, [facility] /EPI
[2020-02-29 09:54] LABS: URINE BLOOD 3+ (Negative); URINE CLARITY CLEAR; URINE COLOR YELLOW; URINE GLUCOSE-RANDOM NEGATIVE (Negative); URINE KETONES NEGATIVE (Negative); URINE LEUKOCYTES-REFLEX NEGATIVE (Negative); URINE NITRITE-REFLEX NEGATIVE (Negative); URINE PROTEIN 1+ (Negative); URINE SPECIFIC GRAVITY >= 1.030 (1.005-1.030); URINE UROBILINOGEN 0.2 E.U./dl (0.2-1.0)
[2020-02-29 09:57] LABS: ICTOTEST (BILI CONFIRMATORY) Negative (Negative); URINE BILIRUBIN 1+ (Negative)
[2020-02-29 09:59] LABS: SQUAMOUS 4-10 Moderate /LPF (0-3)
[2020-02-29 10:00] LABS: BACTERIA-REFLEX 1-9 Few /HPF (None Seen); CASTS None Seen /LPF (None Seen); CRYSTALS None Seen /LPF (None Seen); MUCUS 0-3 Light strn/LPF (None Seen); URINE RBC >20 Many /HPF (0-2); URINE WBC-REFLEX 0-5 Rare /HPF (0-5)
[2020-02-29 12:30] VITALS: BP 148/67
== END 2020-02-29 12:30 | disposition short-term general hospital (02) ==
LOC: M.ERS 07:27
PROVIDERS: Emergency Medicine Emergency Medical Services
DX: N20.0 Calculus of kidney (principal); Z20.828 Contact with and (suspected) exposure to other viral communicable diseases; I10 Essential (primary) hypertension; M10.9 Gout, unspecified; E11.9 Type 2 diabetes mellitus without complications; Z79.4 Long term (current) use of insulin; Z88.6 Allergy status to analgesic agent; Z79.899 Other long term (current) drug therapy

== ENCOUNTER 2020-12-03 20:13 | Inpatient (IN) | payer MEDICARE ==
[~2020-12-03] VITALS: Ht 167.6 cm; Wt 95.3 kg
[2020-12-03 20:18] VITALS: BP 156/67
[2020-12-03 21:50] LABS: ABSOLUTE BASOPHILS 0.1 thou/uL (0.0-0.2); ABSOLUTE EOSINOPHILS 0.3 thou/uL (0.0-0.7); ABSOLUTE LYMPHOCYTES 2.1 thou/uL (0.8-5.3); ABSOLUTE MONOCYTES 0.7 thou/uL (0.0-1.2); ABSOLUTE NEUTROPHILS 4.2 thou/uL (1.6-8.1); BASOPHILS 1.3 %; EOSINOPHILS 4.1 %; HEMATOCRIT 41.8 % (42.0-52.0); HEMOGLOBIN 13.9 gm/dL (14.0-18.0); LYMPHOCYTES 28.7 %; MCHC 33.2 g/dL (28.0-37.0); MCV 90.4 fL (80.0-100.0); MONOCYTES 9.7 %; MPV 8.5 fl. (7.2-11.1); NUCLEATED RBCS 0 /100WBC; PLATELET COUNT* 141 thou/uL (150-400); POLYS 56.2 %; RBC 4.62 mil/uL (4.50-6.00); RDW-CV 14.2 % (10.5-14.5); WBC 7.4 thou/uL (4.0-11.0)
[2020-12-03 22:00] LABS: CALCIUM 8.9 mg/dL (8.5-10.1); CREATININE 1.4 mg/dL (0.6-1.3); POTASSIUM 3.8 mmol/L (3.5-5.1)
[2020-12-03 22:10] LABS: ALBUMIN 3.8 g/dL (3.4-5.0); MAGNESIUM 2.1 mg/dL (1.8-2.4); TOTAL BILIRUBIN 0.5 mg/dL (<0.1-1.0); TOTAL PROTEIN 6.9 g/dL (6.4-8.2)
[2020-12-04] VITALS (7 sets, daily range): BP systolic 110–198; BP diastolic 79–88
--- NOTE | 2020-12-04 07:53 | EKG ---
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 Administrator: : 1940 Requested By: Arielle Pena Order Number: [id number] MD: Chavez Jauregui Measurements Intervals [place] Rate: 63 P: 24 GA: 162 QRS: 48 QRSD: 92 T: 87 QT: 392 QTc: 402 Interpretive Statements Sinus rhythm Atrial premature complexes Low voltage, precordial leads Baseline wander in lead(s) II,III,aVF,V6 Compared to ECG 02/29/2020 08:16:22 Atrial premature complex(es) now present Low QRS voltage now present Intraventricular conduction delay no longer present T-wave abnormality no longer present Electronically Signed On 12-04-2020 7:53:12 CDT by Chavez Jauregui [email or web address] <ELECTRONICALLY SIGNED> By: Chavez Jauregui MD, FAC 12/04/20 0753 21 21 Chavez Jauregui MD, [facility] /EPI
[2020-12-04 17:08] LABS: ANION GAP 11 mmol/L (7-16); BUN 14 mg/dL (7-18); CALCIUM 8.7 mg/dL (8.5-10.1); CHLORIDE 106 mmol/L (98-107); CHOLESTEROL 121 mg/dL (<200); CO2 26 mmol/L (21-32); CREATININE 1.4 mg/dL (0.6-1.3); GLUCOSE 143 mg/dL (70-99); HDL CHOLESTEROL 35 mg/dL (>40); LDL CHOLESTEROL 50 mg/dL (<100); POTASSIUM 3.7 mmol/L (3.5-5.1); SERUM ASSESSMENT CLEAR; SODIUM 143 mmol/L (136-145); TC:HDL 3.5 Ratio (Not establshd); TRIGLYCERIDE 183 mg/dL (<150); VLDL 37 mg/dL (<40)
[2020-12-05] VITALS (18 sets, daily range): BP systolic 138–177; BP diastolic 59–85
[2020-12-05 09:52] LABS: HEMATOCRIT 39.8 % (42.0-52.0); HEMOGLOBIN 13.4 gm/dL (14.0-18.0); MCH 30.2 pg (26.0-34.0); MCHC 33.7 g/dL (28.0-37.0); MCV 89.8 fL (80.0-100.0); MPV 8.7 fl. (7.2-11.1); RBC 4.43 mil/uL (4.50-6.00); RDW-CV 14.3 % (10.5-14.5); WBC 6.6 thou/uL (4.0-11.0)
[2020-12-05 10:02] LABS: ALBUMIN 3.4 g/dL (3.4-5.0); CALCIUM 9.1 mg/dL (8.5-10.1); CREATININE 1.4 mg/dL (0.6-1.3); POTASSIUM 4.3 mmol/L (3.5-5.1); TOTAL BILIRUBIN 0.6 mg/dL (<0.1-1.0); TOTAL PROTEIN 6.4 g/dL (6.4-8.2)
[2020-12-05 10:07] LABS: APTT 26.2 Seconds (25.0-31.3); INR 1.1; PROTIME 11.4 Seconds (9.20-11.50)
--- NOTE | 2020-12-05 15:00 | CARD ---
[address] [address] CARDIAC CATH REPORT Name: ADELSO CHACKO Room: [address] IN .R.#: [id number] Admission: 12/04/20 Attend Phys: Chriss Sheffield MD Discharge: Date of : 39 Report #: [id number] THIS REPORT FOR: cc: Rob Daily John E. DO Blick, David R. MD [facility] ~ APPROVED REPORT Study performed: 12/05/2020 12:12:28 Patient Details Patient Status: In-Patient Room #: The patient is a 80 year-old Procedures Performed diagnostic catheterization Indication Abnormal ECG, Chest pain Risk Factors Hypercholesterolemia, Coronary Artery DiseaseHypertension Previous Procedures/Diagnoses Previous CABG Admission/Lab Medications/Medications given during procedure Aspirin Procedure Narrative The patient was brought electively to the Cardiac Catheterization Laboratory and was prepped and draped in a sterile manner. The right femoral was infiltrated with 1% Lidocaine subcutaneous anesthesia. IV conscious sedation was used throughout procedure with appropriate monitoring and was performed in the presence of a registered nurse who was an independent trained observer other than the physician performing the procedure. A 6 sheath was inserted into the right femoral artery. Coronary angiography was performed using coronary diagnostic catheters. The right coronary system was accessed and visualized with a Diagnostic catheter. The left coronary system was accessed and visualized with a Diagnostic catheter. The left ventricle was accessed and visualized [place] [address] CARDIAC CATH REPORT Name: ADELSO CHACKO Room: [address] ADM [place] M.R.#: [id number] Admission: 12/04/20 Attend Phys: Chriss Sheffield MD Discharge: Date of : 39 Report #: [id number] Left ventricular/Aortic Valve gradient assessed via catheter pullback. Left ventriculogram was performed in ROQUE projection. An aortogram of the ascending aorta was performed. Closure device was deployed with a 6 Fr Mynx. The patient tolerated the procedure well and there were no complications associated with the procedure. There was no hematoma. Coronary Angiography The patient's coronary anatomy is co- dominant. [place] Artery Percent Stenosis Grafts (Complete if Previous CABG=Yes: Percent Stenosis) Unable to cannulate the takeoff of the GAMBLE graft because of tortuosity of the left subclavian artery. GAMBLE graft was visualized with a flush injection of the proximal subclavian artery using a JR4 catheter, that revealed no significant stenosis. The vein graft to the second marginal branch of the circumflex was cannualted with a 6 persian JR4 catheter and revealed a 50% proximal stenosis in the SVG. The SVG to the distal RCA was visualized with a multipurpose catheter, and had a 40% distal stenosis. Diagnostic Cath Left Main 90% proximal stenosis LAD 99% proximal stenosis OM2 100% proximal stenosis noted Right Coronary 99% mid stenosis noted Left Ventriculography The left ventricular ejection fraction is estimated to be 45-50%. Left ventricular wall motion abnormalities are not present. There is 1+ mitral insufficiency. Aortic root injection revealed no aortic insufficiency Hemodynamics The left ventricular end diastolic pressure is 15 mmHg. There was no gradient across the aortic valve upon pullback. Pullback from the left ventricle to the aorta revealed no gradient across the aortic valve. Conclusion 1. 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 2. 99% stenosis of the mid RCA 3. Patetnt GAMBLE graft noted to the LAD 4. Patent SVG's noted to the marginal branch of the circumflex, [place] [address] CARDIAC CATH REPORT Name: ADELSO CHACKO Room: [address] [place] [facility]#: [id number] Admission: 12/04/20 Attend Phys: Chriss Sheffield MD Discharge: Date of : 39 Report #: [id number] the distal RCA 5. LVEF 45-50% Recommendations Aggressive Medical Therapy <ELECTRONICALLY SIGNED> By: Harmeet Brewster MD, [facility] 12/05/20 1459 1459 1459Daviavery Brewster MD, [facility] /INF
[2020-12-05] MEDS ORDERED: NORVASC5 MG PO (15:01)
== END 2020-12-05 18:46 | disposition home or self-care (01) | DRG 392 ==
LOC: M.ERS 20:13 → M.TBA-ER 12-04 00:16 → M.2W 12-04 16:32
PROVIDERS: Emergency Medicine; Internal Medicine Cardiovascular Disease; Registered Nurse; ADMIT Internal Medicine; ATTEND Internal Medicine
PROC: B2111ZZ Fluoroscopy of Multiple Coronary Arteries using Low Osmolar Contrast (ICD-10-PCS; principal; 2020-12-05)
PROC: B2151ZZ Fluoroscopy of Left Heart using Low Osmolar Contrast (ICD-10-PCS; principal; 2020-12-05)
PROC: B2181ZZ Fluoroscopy of Left Internal Mammary Bypass Graft using Low Osmolar Contrast (ICD-10-PCS; principal; 2020-12-05)
PROC: 4A023N7 Measurement of Cardiac Sampling and Pressure, Left Heart, Percutaneous Approach (ICD-10-PCS; principal; 2020-12-05)
PROC: B2131ZZ Fluoroscopy of Multiple Coronary Artery Bypass Grafts using Low Osmolar Contrast (ICD-10-PCS; principal; 2020-12-05)
DX: K21.9 Gastro-esophageal reflux disease without esophagitis (principal); C78.89 Secondary malignant neoplasm of other digestive organs; C78.00 Secondary malignant neoplasm of unspecified lung; Z20.822 Contact with and (suspected) exposure to COVID-19; I10 Essential (primary) hypertension; E78.5 Hyperlipidemia, unspecified; E11.9 Type 2 diabetes mellitus without complications; M10.9 Gout, unspecified; R21 Rash and other nonspecific skin eruption; I25.82 Chronic total occlusion of coronary artery; I25.10 Atherosclerotic heart disease of native coronary artery without angina pectoris; Z79.899 Other long term (current) drug therapy; Z79.82 Long term (current) use of aspirin; Z95.5 Presence of coronary angioplasty implant and graft; Z95.1 Presence of aortocoronary bypass graft; Z90.5 Acquired absence of kidney; Z79.4 Long term (current) use of insulin; Z88.8 Allergy status to other drugs, medicaments and biological substances; I25.2 Old myocardial infarction

== ENCOUNTER → 2021-01-06 | Outpatient (CLI) | payer MEDICARE | END | disposition home or self-care (01) | LOC: M.PC 12:00 | PROVIDERS: ATTEND Anesthesiology Pain Medicine | DX: M54.12 Radiculopathy, cervical region (principal); G89.29 Other chronic pain; I10 Essential (primary) hypertension; E11.9 Type 2 diabetes mellitus without complications; E78.5 Hyperlipidemia, unspecified; Z98.890 Other specified postprocedural states; Z79.899 Other long term (current) drug therapy; Z90.49 Acquired absence of other specified parts of digestive tract; Z88.8 Allergy status to other drugs, medicaments and biological substances ==